=== PATIENT | female | born 1960 | race Caucasian/White ===

== ENCOUNTER 2018-10-13 01:10 | Emergency (ER) | payer OTHER ==
[~2018-10-13] VITALS: Wt 64.0 kg
[2018-10-13] MEDS ORDERED: OXYMETAZOLINE 0.05% 15 ML NAS SPRAY NASAL ONE (01:30)
[2018-10-13] MEDS ORDERED: TRANEXAMIC ACID 1,000 MG/10 ML VIAL IRR SCH (01:53)
[2018-10-13 02:50] VITALS: BP 120/65; PULSE 68; RESP 16
--- NOTE | 2018-10-13 02:50 | ERD ---
ER Documentation Chief Complaint Chief Complaint nose bleed, facial pain s/p walking into glass HPI This is a pleasant 58-year-old female presents for evaluation of epistaxis, which was left-sided, and has now resolved. The patient walked into a glass door, this happened while she was at [employer]. She denied loss of consciousness, denies vomiting she has not on any blood thinners. She endorses pain to her nose. ROS All systems reviewed and are negative except as per history of present illness. Allergies Allergies: Coded Allergies: No Known Allergy (Unverified , 10/13/18) PMhx/Soc History of Surgery: Yes () Anesthesia Reaction: No Hx Neurological Disorder: No Hx Respiratory Disorders: Yes (bronchitis) Hx Cardiac Disorders: No Hx Psychiatric Problems: No Hx Miscellaneous Medical Probl: No Hx Alcohol Use: No Hx Substance Use: No Hx Tobacco Use: No Smoking Status: Never smoker Physical Exam Vitals Vital Signs Date Temp Pulse Resp B/P (MAP) Pulse Ox O2 O2 Flow FiO2 Time Delivery Rate 10/13/18 72 12 132/77 99 Room Air 01:48 (95) 10/13/18 99.1 89 18 165/97 97 01:18 (119) Physical Exam Const: No acute distress, appears comfortable, Head: There is some swelling and ecchymosis over the nasal bridge, there is small amount of dried blood noted in the left nare, there are no nasal septal hematomas, midface is stable, there is no periorbital ecchymosis. Eyes: Normal Conjunctiva ENT: Normal External Ears, Nose and Mouth. Neck: Full range of motion. No meningismus. Resp: Normal respiratory effort Cardio: Regular rate and rhythm, Abd: Soft, nondistended Skin: No petechiae or rashes Ext: No cyanosis, or edema Neur: Awake and alert Psych: Normal Mood and Affect Results 24 hrs Current Medications Medications Dose Sig/Hazel Start Time Status Last (Trade) Ordered Route PRN Stop Time Admin Dose Reason Admin 2 spray ONCE ONCE 10/13/18 DC 10/13/18 Oxymetazoline NASAL 01:30 10/13/18 01:57 HCl (Afrin 01:31 [place]) Tranexamic 1,000 mg ONCE IRR 10/13/18 DC Acid 01:53 10/13/18 (Tranexamic 02:00 Acid) Procedures/MDM This is a 58-year-old female who presents for resolved epistaxis status post trauma to the nose, after hitting her face on a glass door. Patient has no evidence of major head trauma, I suspect she most likely has an uncomplicated nasal bone fracture, I discussed this with the patient and family and recommended outpatient follow-up as needed. Strict return precautions given for recurrent nosebleeds, at discharge patient was in no acute distress. Departure Diagnosis: Primary Impression: Epistaxis Additional Impression: Nasal bone fx-closed Encounter type: initial encounter Qualified Codes: S02.2XXA - Fracture of nasal bones, initial encounter for closed fracture Condition: Stable Patient Instructions: Epistaxis (Adult), Fracture, Nose Versus Contus (No X- Ray) Additional Instructions: Call your primary care doctor TOMORROW for an appointment during the next 2-3 days.See the doctor sooner or return here if your condition worsens before your appointment time. MCKENNA DUPONT MD Oct 13, 2018 02:50
== END 2018-10-13 03:03 | disposition home or self-care (01) ==
LOC: E/R 01:10
DX: S02.2XXA Fracture of nasal bones, initial encounter for closed fracture (principal); R04.0 Epistaxis; R40.2142 Coma scale, eyes open, spontaneous, at arrival to emergency department; R40.2252 Coma scale, best verbal response, oriented, at arrival to emergency department; R40.2362 Coma scale, best motor response, obeys commands, at arrival to emergency department; W22.8XXA Striking against or struck by other objects, initial encounter; Y92.009 Unspecified place in unspecified non-institutional (private) residence as the place of occurrence of the external cause
CPT/HCPCS: Z7502; Z7610; 99282